=== PATIENT | female | born 1995 | race American Indian/Alaskan Native ===

== ENCOUNTER 2019-08-11 12:03 | Emergency (ER) | payer MEDICAID ==
[2019-08-11] MEDS ORDERED: ASPIRIN 325 MG TAB ONE (12:28)
[2019-08-11 12:40] VITALS: BP 120/84
--- NOTE | 2019-08-11 12:41 | Event Note ---
ED Screening Note Date of service: 08/11/19 Time: 12:33 ED Screening Note: Reports 17 weeks and having cramping . Reports going to [facility] and had ultrasound about [address] Warren is [facility] but seen by zig zag stitcher twice. No vaginal bleeding. No urine frequency but no urgency. Reports throbbing GUY at mis scal or rt hoahaoism. Always have cramps but worst 3 days ago. White vaginal d/c. mild odor last std check and no concern fro std. She was having same d/c before std chckk and positive for BV treated with meds TTP abdomen . without gaurding or rebound This initial assessment/diagnostic orders/clinical plan/treatment(s) is/are subject to change based on patients health status, clinical progression and re- assessment by fellow clinical providers in the ED. Further treatment and workup at subsequent clinical providers discretion. Patient/guardian urged not to elope from the ED as their condition may be serious if not clinically assessed and managed. Initial orders include: LABS
[2019-08-11 13:06] LABS: HCG Qualitative,Urine Positive (Negative)
[2019-08-11 13:09] LABS: Bilirubin,Urine NEG (Negative); Color,Urine Yellow (Yellow)
[2019-08-11 13:10] LABS: Blood,Urine NEG (Negative); Mucus,Urine FEW /HPF; Protein,Urine <15 mg/dL mg/dL (Negative); Urobilinogen,Urine < 2.0 mg/dL (<2.0)
[2019-08-11 13:13] LABS: Basophils % (Auto) 0.6 % (0.0-1.8); Eosinophils % (Auto) 0.4 % (0.0-4.3); Hematocrit 37.7 % (30.3-42.9); Hemoglobin 12.6 gm/dl (10.1-14.3); Lymphocytes # (Auto) 1.2 K/mm3 (1.2-5.4); Lymphocytes % (Auto) 34.6 % (13.4-35.0); Mean Corpuscular HGB Conc 33 % (30-34); Mean Corpuscular Volume 89 fl (79-97); Monocytes # (Auto) 0.3 K/mm3 (0.0-0.8); Monocytes % (Auto) 9.5 % (0.0-7.3); Platelet Count 159 K/mm3 (140-440); Red Blood Count 4.23 M/mm3 (3.65-5.03); Red Cell Distribution Width 13.6 % (13.2-15.2)
--- NOTE | 2019-08-11 15:13 | Ultrasound Report ---
ULTRASOUND OBSTETRIC INDICATION / CLINICAL INFORMATION: abd pain. Clinical Gestational Age (GA): 17 weeks 2 days TECHNIQUE: Transabdominal. COMPARISON: None available. FINDINGS: There is a single intrauterine . Biparietal Diameter = 3.76 cm = 17 weeks, 3 day(s). Head Circumference = 14.3 cm = 17 weeks, 4 day(s). Abdominal Circumference = 11.5 cm = 17 weeks, 2 day(s). Femur Length = 2.5 cm = 17 weeks, 4 day(s). Average Ultrasound Age (AUA) = 17 weeks, 3 day(s). Heart Rate: 149 beats per minute. Estimated Weight in grams (if calculated): 195 g Estimated Weight Growth Percentile (if calculated): 54% Position: breech. Cervix: closed. Length in cm (if measured): 3.7 cm Placenta: anterior and free of the os. Amniotic Fluid Volume: normal Amniotic Fluid Index (EFRAIN) in cm (if calculated): Not calculated. Maternal Adnexa: No significant abnormality. It is too early for anatomical survey. IMPRESSION: 1. Single, living intrauterine with estimated sonographic age of 17 weeks, 3 day(s). 2. No significant sonographic abnormality. Signer Name: Liliam Weiner MD Signed: 08/11/2019 3:09 PM Workstation Name: [id number]
[2019-08-11] MEDS ORDERED: BUTALB/ACETAMINOPHEN/CAFFEINE TAB PO ONE (15:26)
--- NOTE | 2019-08-11 15:26 | Emergency Department Report ---
ED General Adult HPI - General Chief complaint: Abdominal Pain Stated complaint: 17WKS PREG/ABD PAIN/CHEST PX Time Seen by Provider: 08/11/19 12:32 Source: patient Mode of arrival: Ambulatory Limitations: No Limitations - History of Present Illness Initial comments: Patient is a 24-year-old female who presents with abdominal pain patient states that she is been having some abdominal pain for the last 3 days patient states that abdominal pain is in the epigastric quadrant she denies having any vaginal bleeding or any vaginal discharge. She states that she feels the baby moving. Patient also states that she has a headache a headache is an 8 out 10 as an achy type of pain nothing makes headache better nothing makes it worse. - Related Data Previous Rx's Medication Instructions Recorded Last Taken Type Miconazole 2% [Monistat 7 Vag 1 applicator VG QHS #1 tube 08/11/19 Unknown Rx Cream] Allergies Allergy/AdvReac Type Severity Reaction Status Date / Time No Known Allergies Allergy Unverified 08/11/19 12:06 ED Review of Systems ROS: Stated complaint: 17WKS PREG/ABD PAIN/CHEST PX Other details as noted in HPI Constitutional: denies: chills, fever Eyes: denies: eye pain, eye discharge, vision change ENT: denies: ear pain, throat pain Respiratory: denies: cough, shortness of breath, wheezing Cardiovascular: denies: chest pain, palpitations Endocrine: no symptoms reported Gastrointestinal: abdominal pain. denies: nausea, diarrhea Genitourinary: denies: urgency, dysuria, discharge Musculoskeletal: denies: back pain, joint swelling, arthralgia Skin: denies: rash, lesions Neurological: headache. denies: weakness, paresthesias Psychiatric: denies: anxiety, depression Hematological/Lymphatic: denies: easy bleeding, easy bruising ED Past Medical Hx - Past Medical History Additional medical history: heart mumur. hiatal hernia - Surgical History Past Surgical History?: No - Social History Smoking Status: Never Smoker Substance Use Type: None - Medications Home Medications: Home Medications Medication Instructions Recorded Confirmed Last Taken Type Miconazole 2% [Monistat 7 Vag 1 applicator VG QHS #1 tube 08/11/19 Unknown Rx Cream] ED Physical Exam - General Limitations: No Limitations General appearance: alert, in no apparent distress - Head Head exam: Present: atraumatic, normocephalic - Eye Eye exam: Present: normal appearance - ENT ENT exam: Present: mucous membranes moist - Neck Neck exam: Present: normal inspection - Respiratory Respiratory exam: Present: normal lung sounds bilaterally. Absent: respiratory distress - Cardiovascular Cardiovascular Exam: Present: regular rate, normal rhythm. Absent: systolic murmur, diastolic murmur, rubs, gallop - GI/Abdominal GI/Abdominal exam: Present: soft, normal bowel sounds - Extremities Exam Extremities exam: Present: normal inspection - Back Exam Back exam: Present: normal inspection - Neurological Exam Neurological exam: Present: alert, oriented X3 - Psychiatric Psychiatric exam: Present: normal affect, normal mood - Skin Skin exam: Present: warm, dry, intact, normal color. Absent: rash ED Course Vital Signs 08/11/19 12:31 Temperature 98.5 F Pulse Rate 83 Respiratory 18 Rate Blood Pressure 120/84 O2 Sat by Pulse 99 Oximetry ED Medical Decision Making - Lab Data Result diagrams: 08/11/19 12:57 Lab Results 08/11/19 08/11/19 08/11/19 Range/Units 12:48 12:57 12:57 WBC 3.5 L (4.5-11.0) K/mm3 RBC 4.23 (3.65-5.03) M/mm3 Hgb 12.6 (10.1-14.3) gm/dl Hct 37.7 (30.3-42.9) % MCV 89 (79-97) fl MCH 30 (28-32) pg MCHC 33 (30-34) % RDW 13.6 (13.2-15.2) % Plt Count 159 (140-440) K/mm3 Lymph % (Auto) 34.6 (13.4-35.0) % [place] % (Auto) 9.5 H (0.0-7.3) % Eos % (Auto) 0.4 (0.0-4.3) % Baso % (Auto) 0.6 (0.0-1.8) % Lymph # 1.2 (1.2-5.4) K/mm3 [place] # 0.3 (0.0-0.8) K/mm3 Eos # 0.0 (0.0-0.4) K/mm3 Baso # 0.0 (0.0-0.1) K/mm3 Seg Neutrophils % 54.9 (40.0-70.0) % Seg Neutrophils # 1.9 (1.8-7.7) K/mm3 Lipase 26 (13-60) units/L HCG, Quant (0-4) mIU/mL Urine Color Yellow (Yellow) Urine Turbidity Slightly-cloudy (Clear) Urine pH 6.0 (5.0-7.0) Ur Specific [place] 1.018 (1.003-1.030) Urine Protein <15 mg/dl (Negative) mg/dL Urine Glucose (UA) Neg (Negative) mg/dL Urine Ketones Neg (Negative) mg/dL Urine Blood Neg (Negative) Urine Nitrite Neg (Negative) Ur Reducing Substances Not Reportable Urine Bilirubin Neg (Negative) Urine Ictotest Not Reportable Urine Urobilinogen < 2.0 (<2.0) mg/dL Ur Leukocyte Esterase Tr (Negative) Urine WBC (Auto) 2.0 (0.0-6.0) /HPF Urine RBC (Auto) 3.0 (0.0-6.0) /HPF U Epithel Cells (Auto) 13.0 (0-13.0) /HPF Urine Mucus Few /HPF Urine HCG, Qual Positive A (Negative) 08/11/19 Range/Units 12:57 WBC (4.5-11.0) K/mm3 RBC (3.65-5.03) M/mm3 Hgb (10.1-14.3) gm/dl Hct (30.3-42.9) % MCV (79-97) fl MCH (28-32) pg MCHC (30-34) % RDW (13.2-15.2) % Plt Count (140-440) K/mm3 Lymph % (Auto) (13.4-35.0) % [place] % (Auto) (0.0-7.3) % Eos % (Auto) (0.0-4.3) % Baso % (Auto) (0.0-1.8) % Lymph # (1.2-5.4) K/mm3 [place] # (0.0-0.8) K/mm3 Eos # (0.0-0.4) K/mm3 Baso # (0.0-0.1) K/mm3 Seg Neutrophils % (40.0-70.0) % Seg Neutrophils # (1.8-7.7) K/mm3 Lipase (13-60) units/L HCG, Quant 32800 H (0-4) mIU/mL Urine Color (Yellow) Urine Turbidity (Clear) Urine pH (5.0-7.0) Ur Specific [place] (1.003-1.030) Urine Protein (Negative) mg/dL Urine Glucose (UA) (Negative) mg/dL Urine Ketones (Negative) mg/dL Urine Blood (Negative) Urine Nitrite (Negative) Ur Reducing Substances Urine Bilirubin (Negative) Urine Ictotest Urine Urobilinogen (<2.0) mg/dL Ur Leukocyte Esterase (Negative) Urine WBC (Auto) (0.0-6.0) /HPF Urine RBC (Auto) (0.0-6.0) /HPF U Epithel Cells (Auto) (0-13.0) /HPF Urine Mucus /HPF Urine HCG, Qual (Negative) - Radiology Data Radiology results: report reviewed, image reviewed Ultrasound: Shows some 17 week intrauterine heart rate 149 - Medical Decision Making Medical diagnosis: Differential medical diagnosis UTI, anemia, tension headache I will give patient Fioricet I'll give patient blood work and urinalysis I will get ultrasound. Diagnostic workup is unremarkable patient can be discharged from the emergency department. Critical care attestation.: If time is entered above; I have spent that time in minutes in the direct care of this critically ill patient, excluding procedure time. ED Disposition Clinical Impression: Tension headache Abdominal pain Qualifiers: Abdominal location: epigastric Qualified Code(s): R10.13 - Epigastric pain Qualifiers: Weeks of gestation: 17 weeks Qualified Code(s): Z3A.17 - 17 weeks gestation of Disposition: DC-01 TO HOME OR SELFCARE Is pt being admited?: No Does the pt Need Aspirin: No Condition: Stable Instructions: Abdominal Pain (ED), (ED) Prescriptions: Miconazole 2% [Monistat 7 Vag Cream] 1 applicator VG QHS #1 tube Referrals: Amos BELTRAN [Other] - 3-5 Days
== END 2019-08-11 17:17 | disposition home or self-care (01) ==
LOC: ED 12:03
DX: O26.892 Other specified pregnancy related conditions, second trimester (principal); G44.209 Tension-type headache, unspecified, not intractable; R10.13 Epigastric pain; Z3A.17 17 weeks gestation of pregnancy
CPT/HCPCS: 36415; 76805; 81001; 81025; 83690; 84702; 85025